=== PATIENT | male | born 1990 | race African-American/Black ===

== ENCOUNTER 2017-03-27 11:32 | Emergency (ER) | payer OTHER ==
[2017-03-27] MEDS ORDERED: Aspirin Low Dose CHEW TAB* 81 MG PO ONE (11:37)
[2017-03-27] MEDS ORDERED: LORazepam INJ* 2 MG/ML 1 ML VIAL IV PUSH ONE ×2 (11:37→12:41)
[2017-03-27] MEDS: NS 0.9% 1000 ML* 1,000 ML IV ONE ×2 (11:51→12:51)
--- NOTE | 2017-03-27 12:08 | RAD ---
INDICATION: Tachycardia. COMPARISON: There are no prior studies available for comparison. TECHNIQUE: A portable view of the chest was obtained. FINDINGS: Cardiac and mediastinal contours appear to be within normal limits. The lungs are clear. No pleural effusion is seen. IMPRESSION: NO EVIDENCE FOR ACUTE DISEASE.
[2017-03-27 12:12] LABS: Benzodiazepine Urine Screen None Detected (None Detect)
[2017-03-27 12:28] LABS: Hematocrit 42 % (42-52); Hemoglobin 14.1 g/dl (14.0-18.0); Mean Corpuscular HGB Conc 33 g/dl (31-36); Mean Corpuscular Hemoglobin 30 pg (27-31); Mean Corpuscular Volume 90 fL (80-94); Mean Platelet Volume 9 um3 (7.4-10.4); Red Blood Count 4.68 10^6/ul (4.0-5.4); Red Cell Distribution Width 13 % (10.5-15); White Blood Count 10.5 10^3/ul (3.5-10.8)
[2017-03-27 12:39] LABS: Albumin 4.2 g/dL (3.2-5.2); BUN/Creatinine Ratio 9.6 (8-20); Calcium 9.2 mg/dL (8.6-10.3); EGFR African American 88.4 (>60); EGFR Non-African American 68.8 (>60); Globulin 2.8 g/dL (2-4); Potassium 3.6 mmol/L (3.5-5.0); Total Bilirubin 0.8 mg/dL (0.2-1.0)
[2017-03-27] MEDS ORDERED: Metoprolol Tartrate TAB* 25 MG PO ONE (15:03)
[2017-03-27] MEDS ORDERED: ALPRAZolam TAB* 0.5 MG PO ONE (15:03)
[2017-03-27 17:18] VITALS: BP 153/74
--- NOTE | 2017-04-01 12:00 | ED ---
Nile Mae Alfonso, scribed for Russell Lerma MD on 03/27/17 at 1212 . 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 with a chief complaint of racing palpitations since 3 days ago. He states I have had this before and it felt like this and I took two pink pills and it got better. Per EMS his heart rate was in the 120s and he was given adenosine [employer]. Symptoms aggravated by nothing. Symptoms alleviated by nothing. Patient reports chills, headache (pressure), lightheadedness, and insomnia. Patient denies fever, vomiting, diarrhea, SOB, and CP. Patient is currently on 2L [place] O2. Tobacco abuse disorder. He is reports smoking K2 last week and smoking marijuana earlier today. He denies ETOH abuse. PMHx includes HTN. - History of Current Complaint Chief Complaint: EDDysrhythmPalp Hx Obtained From: Patient Onset/Duration: Sudden Onset, Lasting Days - 3, Still Present Timing: Constant Severity Initially: Moderate Severity Currently: Moderate Character: Fast Aggravating: Nothing Alleviating: Nothing Associated Signs & Symptoms: Lightheadedness - Allergy/Home Medications Allergies/Adverse Reactions: Allergies Allergy/AdvReac Type Severity Reaction Status Date / Time Penicillins Allergy Unknown Verified 03/27/17 11:46 Reaction Details Home Medications: Home Medications Enalapril(NF) [Enalapril (NF)] 10 mg PO DAILY 03/27/17 [History Confirmed ] Hydrochlorothiazide TAB* [Hydrodiuril TAB*] 25 mg PO DAILY 03/27/17 [History Confirmed 03/27/17] Omeprazole CAP* [Prilosec CAP* 20 MG] 20 mg PO DAILY 03/27/17 [History Confirmed 03/27/17] PMH/Surg Hx/FS Hx/Imm Hx Cardiovascular History: Reports: Hx Hypertension Sensory History: Denies: Hx Deafness Opthamlomology History: Denies: Hx Legally Blind Infectious Disease History: No Infectious Disease History: Denies: Traveled Outside the [place] in Last 30 Days - Family History Known Family History: Positive: Cardiac Disease, Diabetes - Social History Alcohol Use: Rare Hx Substance Use: Yes Substance Use Type: Reports: Marijuana, Other - K2 Hx Tobacco Use: Yes Smoking Status (MU): Heavy Every Day Tobacco Smoker Review of Systems Positive: Chills. Negative: Fever Negative: Erythema Negative: Sore Throat Positive: Palpitations. Negative: Chest Pain Negative: Shortness Of Breath, Cough Negative: Abdominal Pain, Vomiting, Diarrhea, Nausea Negative: dysuria, hematuria Negative: Myalgia, Edema Negative: Rash Neurological: Other - Headache, lightheadedness, and insomnia; Negative dizziness All Other Systems Reviewed And Are Negative: Yes Physical Exam Triage Information Reviewed: Yes Vital Signs On Initial Exam: Initial Vitals Temp Pulse Resp BP Pulse Ox 98.8 F 124 22 125/98 98 03/27/17 11:35 03/27/17 11:35 03/27/17 11:35 03/27/17 11:35 03/27/17 11:35 Vital Signs Reviewed: Yes Appearance: Positive: Well-Appearing, No Pain Distress, Well-Nourished Skin: Positive: Warm, Dry Head/Face: Positive: Normal Head/Face Inspection Eyes: Positive: Conjunctiva Clear ENT: Positive: Normal ENT inspection Neck: Positive: Other: - Musculoskeletal ROM normal neck. (-) JVD, (-) Stridor, (-) Tracheal deviation Lymph: (-) Cervical adenopathy Respiratory/Lung Sounds: Positive: Other - Effort normal. (-) Respiratory distress, (-) Wheezes, (-) Rales Cardiovascular: Positive: Tachycardia, Other - Heart sounds normal; Intact distal pulses; The pedal pulses are 2+ and symmetric. Radial pulses are 2+ and symmetric. (-) Murmur Abdomen Description: Positive: Other: - Soft, (-) Tenderness, (-) Distension, (- ) Guarding, (-) Rebound Musculoskeletal: Negative: Edema Left, Edema Right Neurological: Positive: Alert, Oriented to Person Place, Time, Other - Tremulous Psychiatric: Positive: Other - shaky voice Diagnostics - Vital Signs Vital Signs Temp Pulse Resp BP Pulse Ox 03/27/17 11:52 30 03/27/17 11:45 121 19 98 03/27/17 11:43 164/79 03/27/17 11:35 98.8 F 124 22 125/98 98 - Laboratory Result Diagrams: 03/27/17 12:10 03/27/17 12:10 Lab Statement: Any lab studies that have been ordered have been reviewed, and results considered in the medical decision making process. - Radiology CXR Radiology Interpretation Completed By: Radiologist - NO EVIDENCE FOR ACUTE DISEASE. ED physician has reviewed this radiology report and agrees. - EKG 1152 Cardiac Rate: Tachycardia - BPM 131 EKG Rhythm: Sinus Tachycardia Ectopy: None EKG Interpretation: No STEMI. Re-Evaluation - Re-Evaluation First Eval Re-Evaluation Time: 16:57 Comment: He is feeling better. He states that when he smokes illicit substances he also smokes tobacco. I reviewed that the substance he has consumed can be adulterated. Ceasing illicit substance use was recommended. Labs reviewed. 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 with a chief complaint of racing palpitations since 3 days ago. He states I have had this before and it felt like this and I took two pink pills and it got better. Per EMS his heart rate was in the 120s and he was given adenosine [employer]. Symptoms aggravated by nothing. Symptoms alleviated by nothing. Patient reports chills, headache (pressure), lightheadedness, and insomnia. Patient denies fever, vomiting, diarrhea, SOB, and CP. Patient is currently on 2L [place] O2. Tobacco abuse disorder. He is reports smoking K2 last week and smoking marijuana earlier today. He denies ETOH abuse. PMHx includes HTN. An EKG reveals sinus tachycardia. CXR reveals NO EVIDENCE FOR ACUTE DISEASE. ED physician has reviewed this radiology report and agrees. Patient will be discharged with follow up from PCP. The patient is agreeable with this plan. - Diagnoses Provider Diagnoses: Polysubstance abuse, Adverse drug reaction Discharge - Discharge Plan Condition: Stable Disposition: HOME Patient Education Materials: Polysubstance Abuse (ED), Adverse Drug Reaction ( ED) Referrals: Blake WETZEL,Eryn Powers [Primary Care Provider] - 2 Days Additional Instructions: RETURN TO THE EMERGENCY DEPARTMENT FOR CHANGING OR WORSENING SYMPTOMS The documentation as recorded by the Nile estrella Alfonso accurately reflects the service I personally performed and the decisions made by me, Russell Lerma MD.
== END 2017-03-27 17:21 | disposition home or self-care (01) ==
LOC: ED 11:32
DX: R00.2 Palpitations (principal); T50.905A Adverse effect of unspecified drugs, medicaments and biological substances, initial encounter; Y92.9 Unspecified place or not applicable; I10 Essential (primary) hypertension; Z72.0 Tobacco use; Z88.0 Allergy status to penicillin
CPT/HCPCS: 36415; 71010; 80053; 80307; 83605; 84484; 85025; 87040; 93005; 96360; 96374; 96376; 99284; A9270-GY; J2060